=== PATIENT | male | born 2005 | race Caucasian/White ===

== ENCOUNTER 2025-01-23 01:12 | Inpatient (IN) | payer OTHER ==
[2025-01-22 23:31] VITALS: BMI 18.4
[2025-01-23] MEDS: hydrOXYzine PAMOATE 25 MG CAPSULE (FP) PO PRN (01:00)
[2025-01-23] MEDS: METHOCARBAMOL 500 MG TABLET PO PRN (01:00)
[~2025-01-23 01:12] MED LIST: ACETAMINOPHEN 325 MG TABLET (FP) PO PRN; BENZOCAINE/MENTHOL (CHLORASEPTIC ) LOZENGE MM PRN; BENZONATATE 200 MG CAPSULE PO PRN; BISMUTH SUBSALICYLATE 524 MG/30 ML PO PRN; DICYCLOMINE HCL 10 MG CAPSULE PO PRN; IBUPROFEN 400 MG TABLET (FP) PO PRN; IBUPROFEN 600 MG TABLET (FP) PO PRN; LOPERAMIDE HCL 2 MG CAPSULE PO PRN; MAG HYDROX/AL HYDROX/SIMETH 30 ML UNIT-DOSE CUP PO PRN; MAGNESIUM HYDROX 2400MG/30ML ORAL SUSPENSION 30 ML CUP PO PRN; NALOXONE (NARCAN) HCL 4 MG/0.1 ML SPRAY NS PRN; ONDANSETRON *ODT* 4 MG TABLET SL PRN; POLYETHYLENE GLYCOL (HEALTHYLAX) 3350 17 GM PACKET PO PRN; guaiFENesin 600 MG TABLET.ER (FP) PO PRN
[2025-01-23] MEDS ORDERED: hydrOXYzine PAMOATE 25 MG CAPSULE (FP) PO ONE (01:15)
[2025-01-23] MEDS ORDERED: METHOCARBAMOL 500 MG TABLET ONE (01:15)
[2025-01-23] MEDS: PRENATAL VITAMINS W/ FOLIC ACID TABLET (FP) PO SCH (10:26)
[2025-01-23] MEDS ORDERED: methaDONE HCL 10 MG TABLET (FOR DETOX USE ONLY) PO PRN (11:16)
[2025-01-23] MEDS: methaDONE HCL 10 MG TABLET (FOR DETOX USE ONLY) PO ONE (12:00)
[2025-01-23] MEDS: BUPRENORPHINE/NALOXONE 0.5 MG/0.125 MG FILM SL ONE ×2 (12:02→22:33)
[2025-01-23 12:24] LABS: HEMATOCRIT 37.8 % (35.4-49); HEMOGLOBIN 12.5 GM/dL (11.7-16.9); MCH 27.2 pg (25.7-33.7); MCHC 33.2 g/dl (32.0-35.9); MEAN PLT VOLUME 9.1 fl (7.5-11.1); PLATELET COUNT 278 10^3/uL (134-434); RBC 4.61 M/mm3 (4.00-5.60); RDW 14.6 % (11.9-15.9); WHITE BLOOD COUNT 6.1 K/mm3 (4.0-10.0)
[2025-01-23 12:32] LABS: CHLORIDE 106 mmol/L (98-107); POTASSIUM 3.6 mmol/L (3.5-5.1); SODIUM 141 mmol/L (136-145)
[2025-01-23 12:40] LABS: GLUCOSE,RANDOM 102 mg/dL (74-106)
[2025-01-23 12:41] LABS: ANION GAP 9 mmol/L (4-13); BLOOD UREA NITROGEN 17.6 mg/dL (7-18); CALCIUM 9.1 mg/dL (8.5-10.1); CO2 27 mmol/L (21-32)
[2025-01-23 12:43] LABS: SGOT/AST 14 U/L (15-37)
[2025-01-23 12:44] LABS: CREATININE 0.8 mg/dL (0.55-1.3); SGPT/ALT 15 U/L (13-61)
[2025-01-23 12:45] LABS: ALK PHOS 96 U/L (45-117); TOT PROT 6.8 g/dl (6.4-8.2)
[2025-01-23 12:46] LABS: BILIRUBIN,TOTAL 0.7 mg/dL (0.2-1)
[2025-01-23 13:34] LABS: HIV INTERPRETATION NEGATIVE (NEGATIVE)
[2025-01-23] MEDS: cloNIDine HCL 0.1 MG TABLET PO SCH (14:10)
[2025-01-23] MEDS: diazePAM 5 MG TABLET PO PRN (17:15)
[2025-01-23] MEDS ORDERED: MELATONIN 5 MG TABLETS PO SCH (22:00)
[2025-01-23] MEDS: THIAMINE 100 MG TABLET PO SCH (22:32)
[2025-01-24] MEDS: BUPRENORPHINE/NALOXONE 0.5 MG/0.125 MG FILM SL SCH (10:19)
[2025-01-24] MEDS: MELATONIN 5 MG TABLETS PO SCH (22:36)
[2025-01-25] MEDS: methaDONE HCL 10 MG TABLET (FOR DETOX USE ONLY) PO ONE (10:17)
[2025-01-25] MEDS: BUPRENORPHINE/NALOXONE 2 MG/0.5 MG FILM PACKET SL SCH (10:19)
[2025-01-26] MEDS: BUPRENORPHINE/NALOXONE 4 MG/1 MG FILM PACKET SL SCH (09:26)
[2025-01-27] MEDS: methaDONE HCL 10 MG TABLET (FOR DETOX USE ONLY) PO ONE (09:45)
[2025-01-27] MEDS: BUPRENORPHINE/NALOXONE 8 MG/2 MG FILM PACKET SL SCH (09:46)
[2025-01-27] MEDS: CYPROHEPTADINE HCL 4 MG TABLET PO SCH ×2 (11:08→16:30)
[2025-01-27] MEDS: MELATONIN 5 MG TABLETS PO ONE (21:31)
[2025-01-28 09:18] VITALS: BP 129/89; PULSE 80; RESP 16; TEMP 97.5
[2025-01-28] MEDS: BUPRENORPHINE/NALOXONE 8 MG/2 MG FILM PACKET SL SCH (09:39)
[2025-01-28] MEDS ORDERED: BUPRENORPHINE/NALOXONE 8 MG/2 MG FILM PACKET SL SCH (10:00)
== END 2025-01-28 10:10 | disposition home or self-care (01) | DRG 773 ==
LOC: YASAS 01:12 → Y6N 02:19
PROVIDERS: ADMIT Allergy & Immunology; ATTEND Allergy & Immunology
PROC: HZ2ZZZZ Detoxification Services for Substance Abuse Treatment (ICD-10-PCS; principal; 2025-01-23)
DX: F11.23 Opioid dependence with withdrawal (principal); F19.282 Other psychoactive substance dependence with psychoactive substance-induced sleep disorder; R63.6 Underweight; Z68.1 Body mass index [BMI] 19.9 or less, adult; Z56.0 Unemployment, unspecified; Z59.00 Homelessness unspecified; Z87.891 Personal history of nicotine dependence
CPT/HCPCS: 36415; 80053; 80305; 80307; 85027; 86780; 86803; 87389; 93005; 93010